=== PATIENT | female | born 1950 | race Caucasian/White ===

== ENCOUNTER → 2016-09-04 | Outpatient (CLI) | payer MEDICARE, MEDICAID ==
[~2016-09-04] MED LIST: ALPR1TAB10 PO; CITA20TA3 PO; DIGO0.1262 PO; NITR0.4S31 SL; TOPI50TA53 PO; TRAM50TA2 PO
[2016-09-04 11:57] LABS: Aspartate Aminotransferase 18 U/L (15-37); Sodium 131 mmol/L (136-145)
[2016-09-04 12:16] LABS: Vitamin B12 452 pg/mL (211-911)
[2016-09-04 12:42] LABS: Temperature: 24.3 C (20.0-25.0)
== END | disposition home or self-care (01) ==
LOC: LAB 11:19
PROVIDERS: ATTEND Internal Medicine
DX: E87.1 Hypo-osmolality and hyponatremia (principal); E87.8 Other disorders of electrolyte and fluid balance, not elsewhere classified
CPT/HCPCS: 36415; 82607; 82746; 84295; 84450; 84460; 86592; 86803

== ENCOUNTER → 2016-09-19 | Outpatient (CLI) | payer MEDICARE, MEDICAID ==
[2016-09-19 10:40] LABS: Basophils # (auto) 0 uL; Basophils % (auto) 0.6 % (0.0-2.0); Eosinophils # (auto) 0 uL; Eosinophils % (auto) 0.7 % (0.0-7.0); Hematocrit 36.9 % (36.0-46.0); Hemoglobin 12.7 g/dL (12.2-16.2); Lymphocytes # (auto) 1.6 uL; Lymphocytes % (auto) 30.8 % (10.0-50.0); Mean Corpuscular Hgb Conc. 34.4 g/dL (32.0-36.0); Mean Corpuscular Volume 93.2 fL (80.0-100.0); Mean Platelet Volume 7.5 fL (7.4-10.4); Monocytes # (auto) 0.3 uL; Neutrophils # (auto) 3.2 uL; Neutrophils % (auto) 62.9 % (37.0-80.0); Platelet Count (auto) 402 10^3/uL (140-450); Red Cell Distribution Width 15.4 % (11.6-16.0); White Blood Cell 5.1 10^3/uL (4.4-10.8)
[2016-09-19 10:55] LABS: Urine Bilirubin Negative (Negative); Urine Blood Negative /uL (Negative); Urine Color Yellow (Yellow); Urine Glucose Normal (Normal); Urine Ketone Negative (Negative); Urine Nitrite Negative (Negative); Urine RBC 1 /hpf (0 - 4); Urine Squamous Epithelial Cell FEW /hpf (<5); Urine Urobilinogen Normal (Negative); Urine pH 5.5 (5.0-8.0)
[2016-09-19 11:06] LABS: Albumin 3.9 g/dL (3.4-5.0); BUN/Creatinine Ratio 15.5; Bilirubin, Total 0.3 mg/dL (0.2-1.0); Calcium 8.7 mg/dL (8.5-10.1); Potassium 4.2 mmol/L (3.5-5.1); Total Protein 7.3 g/dL (6.4-8.2)
== END | disposition home or self-care (01) ==
LOC: LAB 09:48
PROVIDERS: ATTEND Internal Medicine
DX: Z00.00 Encounter for general adult medical examination without abnormal findings (principal); E78.2 Mixed hyperlipidemia; I10 Essential (primary) hypertension; B18.2 Chronic viral hepatitis C; F41.9 Anxiety disorder, unspecified; F33.9 Major depressive disorder, recurrent, unspecified
CPT/HCPCS: 36415; 80053; 80061; 81001; 85025; 87522

== ENCOUNTER → 2016-10-31 | Outpatient (CLI) | payer MEDICARE, MEDICAID ==
[2016-10-31 09:23] LABS: Vaginal RBC None Seen; Vaginal Trichomonas Not Present; Vaginal WBC Few; Vaginal Yeast None Seen
[2016-10-31 09:24] LABS: Vaginal Bacteria Rare; Vaginal Clue Cells None Seen; Vaginal Epithelial Cells Few
[2016-10-31 09:40] LABS: Albumin 3.4 g/dL (3.4-5.0); BUN/Creatinine Ratio 17.4; Bilirubin, Total 0.4 mg/dL (0.2-1.0); Calcium 8.5 mg/dL (8.5-10.1); Potassium 4.3 mmol/L (3.5-5.1); Total Protein 6.7 g/dL (6.4-8.2)
== END | disposition home or self-care (01) ==
LOC: LAB 08:22
PROVIDERS: ATTEND Internal Medicine
DX: B18.2 Chronic viral hepatitis C (principal); I50.9 Heart failure, unspecified; I10 Essential (primary) hypertension; F33.9 Major depressive disorder, recurrent, unspecified
CPT/HCPCS: 36415; 80053; 85652; 86141; 86704; 86705; 86706; 86708; 87210; 87340